=== PATIENT | female | born 1970 | race Caucasian/White ===

== ENCOUNTER 2016-04-25 13:29 | Emergency (ER) | payer OTHER ==
[~2016-04-25] VITALS: Ht 157.5 cm; Wt 63.6 kg
[~2016-04-25 13:29] MED LIST: AMLO-512 PO; ASPI-825 PO; ATOR40TA28 PO; BENA20 PO; GEMF600T3 PO; HYDR25TA PO; ISOS30TA6 PO; METF850T2 PO; METO50 PO; TICA90TA PO
[2016-04-25 13:41] LABS: GLUCOSE,POINT OF CARE 144 MG/DL (70-110)
[2016-04-25 16:36] LABS: BASOPHILS % (AUTO) 1.2 % (0.0-2.0); EOSINOPHILS % (AUTO) 3.2 % (1.0-6.0); HEMOGLOBIN 13.3 g/dL (12.0-16.0); LYMPHOCYTES % (AUTO) 21.8 % (22.0-44.0); MEAN CORPUSCULAR HGB CONC 33.3 G/dL (31.0-37.0); MEAN CORPUSCULAR VOLUME 84 fL (80-100); MONOCYTES # (AUTO) 0.5 K/uL (0.1-1.0); MONOCYTES % (AUTO) 5.6 % (2.0-9.0); NEUTROPHILS # (AUTO) 6.2 K/uL (1.8-7.7); NEUTROPHILS % (AUTO) 68.2 % (40.0-70.0); PLATELET COUNT (AUTO) 264 K/uL (150-450); RED BLOOD CELL COUNT(AUTO) 4.75 MIL/uL (4.00-5.20); WHITE BLOOD COUNT (AUTO) 9.2 K/uL (4.5-11.0)
[2016-04-25 16:45] LABS: CALCIUM, TOTAL 8.3 mg/dL (8.8-10.5); CREATININE 2.11 mg/dL (0.60-1.30)
[2016-04-25 16:49] LABS: ALBUMIN 2.7 g/dL (3.4-5.0); BILIRUBIN,TOTAL 0.2 mg/dL (0.1-1.0); TOTAL PROTEIN, SERUM 6.8 g/dL (6.4-8.2)
[2016-04-25 17:21] LABS: APPEARANCE,URINE CLEAR (CLEAR); GLUCOSE, URINE (UA) 250 mg/dL (NEGATIVE); KETONES,URINE NEGATIVE (NEGATIVE); LEUKOCYTE ESTERASE ,URINE NEGATIVE (NEGATIVE); OCCULT BLOOD,URINE TRACE (NEGATIVE); PROTEIN,URINE SEE CONFIRM (NEGATIVE)
[2016-04-25 17:26] LABS: SQUAMOUS EPITHELIAL CELL,UR Moderate /LPF (None Seen); SULFOSALICYLIC ACID,URINE 2+ (Negative)
[2016-04-25] MEDS ORDERED: LIDOCAINE HCL/PF 1% 2 ML VIAL IM ONE (18:30)
[2016-04-25] MEDS ORDERED: CefTRIAXone SODIUM 1 GM/VIAL IM ONE (18:30)
[2016-04-25 18:44] VITALS: BP 205/107
[2016-04-25] MEDS ORDERED: METOPROLOL TARTRATE 50 MG TABLET PO ONE (19:00)
[2016-04-25] MEDS ORDERED: AmLODIPine BESYLATE 5 MG TABLET PO ONE (19:00)
== END 2016-04-25 19:30 | disposition home or self-care (01) ==
LOC: EMS 13:30
DX: N39.0 Urinary tract infection, site not specified (principal); I10 Essential (primary) hypertension; E11.9 Type 2 diabetes mellitus without complications; E78.00 Pure hypercholesterolemia, unspecified; Z79.82 Long term (current) use of aspirin
CPT/HCPCS: 36415; 71020; 80053; 81001; 81002; 82962; 85025; 87077; 87086; 87186; 96372; 99285; J0696; J3490

== ENCOUNTER 2016-12-06 21:36 | Emergency (ER) | payer OTHER ==
[~2016-12-06] VITALS: Ht 157.5 cm; Wt 59.0 kg
[~2016-12-06 21:36] MED LIST changes: +ACET-784 PO; +AMLO-511 PO; -AMLO-512 PO; -ASPI-825 PO; +ATOR20TA86 PO; -ATOR40TA28 PO; +AUD NEB; -BENA20 PO; +BISA10S PR; +CARV12 PO; +CLON-570 PO; +DSS100 PO; -GEMF600T3 PO; -HYDR25TA PO; -ISOS30TA6 PO; +LEVE250T55 PO; +LOSA50TA37 PO; -METF850T2 PO; -METO50 PO; +MOM30 PO; +PANT40TA25 PO; -TICA90TA PO
[2016-12-06 21:55] LABS: BASOPHILS % (AUTO) 0.3 % (0.0-2.0); HEMOGLOBIN 11.6 g/dL (12.0-16.0); LYMPHOCYTES # (AUTO) 1.8 K/uL (1.0-4.8); LYMPHOCYTES % (AUTO) 31.6 % (22.0-44.0); MEAN CORPUSCULAR HEMOGLOBIN 29.2 pg (26.0-34.0); MEAN CORPUSCULAR HGB CONC 34.1 G/dL (31.0-37.0); MEAN CORPUSCULAR VOLUME 86 fL (80-100); MONOCYTES # (AUTO) 0.3 K/uL (0.1-1.0); MONOCYTES % (AUTO) 6.1 % (2.0-9.0); NEUTROPHILS # (AUTO) 3.3 K/uL (1.8-7.7); PLATELET COUNT (AUTO) 231 K/uL (150-450); RED BLOOD CELL COUNT(AUTO) 3.96 MIL/uL (4.00-5.20); RED CELL DISTRIBUTION WIDTH 13.3 % (11.5-14.5); WHITE BLOOD COUNT (AUTO) 5.6 K/uL (4.5-11.0)
[2016-12-06 22:04] LABS: CALCIUM, TOTAL 8.7 mg/dL (8.8-10.5); CREATININE 2.27 mg/dL (0.60-1.30); POTASSIUM 3.9 mmol/L (3.5-5.1)
[2016-12-06] MEDS ORDERED: LOSA50TA37 PO (22:05)
[2016-12-06] MEDS ORDERED: AMLO-512 PO (22:05)
[2016-12-06 22:10] LABS: ALBUMIN 3.2 g/dL (3.4-5.0); BILIRUBIN,TOTAL 0.3 mg/dL (0.1-1.0)
[2016-12-06 23:27] VITALS: BP 135/70
== END 2016-12-06 23:37 | disposition home or self-care (01) ==
LOC: EMS 21:38
DX: R07.9 Chest pain, unspecified (principal); E11.9 Type 2 diabetes mellitus without complications; E78.00 Pure hypercholesterolemia, unspecified; I10 Essential (primary) hypertension; Z86.73 Personal history of transient ischemic attack (TIA), and cerebral infarction without residual deficits
CPT/HCPCS: 93005; 99285

== ENCOUNTER 2017-02-16 01:00 | Emergency (ER) | payer OTHER ==
[~2017-02-16 01:00] MED LIST changes: -ACET-784 PO; -AMLO-511 PO; +AMLO-512 PO; -AUD NEB; -BISA10S PR; -CLON-570 PO; -MOM30 PO; -PANT40TA25 PO
== END 2017-02-16 04:13 | disposition left against medical advice (07) ==
LOC: EMS 01:01
DX: R07.9 Chest pain, unspecified (principal); Z53.21 Procedure and treatment not carried out due to patient leaving prior to being seen by health care provider

== ENCOUNTER 2022-08-20 08:34 | Emergency (ER) | payer OTHER ==
[~2022-08-20] VITALS: Ht 154.9 cm; Wt 56.8 kg
[~2022-08-20 08:34] MED LIST changes: +AMLO-258 PO; -AMLO-512 PO; +ATOR20TA PO; -ATOR20TA86 PO; +LEVE250T4 PO; -LEVE250T55 PO; +LOSA-382 PO; -LOSA50TA37 PO
[2022-08-20 08:48] VITALS: TEMP 98.2
[2022-08-20] MEDS ORDERED: TraMADol HCL 50 MG TABLET PO ONE (12:00)
[2022-08-20 12:30] VITALS: BP 138/72; PULSE 72; RESP 17
[2022-08-20] MEDS ORDERED: TRAM-559 PO (12:54)
== END 2022-08-20 13:08 | disposition home or self-care (01) ==
LOC: EMS 08:55
DX: R07.81 Pleurodynia (principal); E11.9 Type 2 diabetes mellitus without complications; E78.00 Pure hypercholesterolemia, unspecified; I10 Essential (primary) hypertension; I63.9 Cerebral infarction, unspecified
CPT/HCPCS: 71101; 99283